=== PATIENT | male | born 1955 ===

== ENCOUNTER 2017-09-12 07:28 | Day surgery (SDC) | payer MEDICAID ==
[2017-09-12 07:40] VITALS: BMI 29.2
[2017-09-12 08:11] VITALS: RESP 18
[2017-09-12] MEDS ORDERED: cefTRIAXone (Rocephin) 1 gm Inj ONE (09:54)
[2017-09-12] MEDS ORDERED: Propofol 10 mg/ml Inj (20 ML) ONE (10:01)
[2017-09-12] MEDS ORDERED: Lactated Ringer's 1,000 ML IV ONE ×2 (10:05→11:09)
[2017-09-12] MEDS ORDERED: Lidocaine 2% Jelly (5 ml) TOP ONE (10:06)
[2017-09-12] MEDS ORDERED: Sevoflurane - Inhalation Anesthetic Liq (250 ml) ONE (10:12)
[2017-09-12] MEDS ORDERED: ePHEDrine 50 mg/ml Inj ONE (10:42)
[2017-09-12] MEDS: HYDROmorphone 0.5 mg/0.5 ml ISec IVP PRN ×2 (12:55→13:25)
--- NOTE | 2017-09-12 14:36 | OP ---
PROCEDURE DATE: 09/12/2017 PREOPERATIVE DIAGNOSES: Benign prostatic hypertrophy, obstructive uropathy. POSTOPERATIVE DIAGNOSES: Benign prostatic hypertrophy, obstructive uropathy. PROCEDURE: GreenLight laser of the prostate. DESCRIPTION OF PROCEDURE: The patient was placed on the operating room table in a dorsal lithotomy position. The area of the groin was draped and prepped in the sterile manner. Using a laser scope under direct vision, I gained access into the bladder. He has a very large prostate, unable to see ureteral orifices from a large middle lobe, I began to use laser fiber first to demarcate the distal portion of the resection and then to initiate an opening and then continued to use a maximum of 180 staples, used the 650,000 joules to complete the procedure. Blood loss during the procedure estimated to be less than 50 mL. At the end of the procedure, number 24 three-way Diana catheter was inserted. The patient then was taken from the operating room in good condition. Sari Dubois MD
[2017-09-12 17:48] VITALS: BP 155/88; PULSE 90; TEMP 97.8; O2SAT 94
== END 2017-09-12 18:15 | disposition home or self-care (01) ==
LOC: H.OPSURG 07:28
PROVIDERS: ATTEND Urology
DX: N40.1 Benign prostatic hyperplasia with lower urinary tract symptoms (principal); N13.8 Other obstructive and reflux uropathy
CPT/HCPCS: 52648; J0696; J1170; J2001; J2405; J2704; J2765; J3010; J7030; J7120